=== PATIENT | male | born 1935 | race Caucasian/White ===

== ENCOUNTER 2020-07-12 10:09 | Emergency (ER) | payer MEDICARE, OTHER ==
--- NOTE | 2020-07-12 10:37 | EDM.PDOC ---
ED HPI GENERAL MEDICAL PROBLEM - General Chief Complaint: Eye Problems Stated Complaint: itchy red eyelid Time Seen by Provider: 07/12/20 10:20 Source of Information: Reports: Patient History Limitations: Reports: No Limitations - History of Present Illness INITIAL COMMENTS - FREE TEXT/NARRATIVE: Pt states he was mowing the lawn 3 days ago and states he right eyelids have been very itchy and mildly edematous, no visual changes, no eye pain or conjunctival redness, only his eyelids are mildly swollen and itchy. Onset: Gradual Onset Date: 07/10/20 Location: Reports: Face (Right upper and lower eyelids) Quality: Reports: Other (itchy, not painful) Improves with: Reports: None, Other (slightly better today than yesterday) Worsens with: Reports: None Associated Symptoms: Reports: No Other Symptoms ED ROS ALLERGIC REACTION - Review of Systems Review Of Systems: See Below Constitutional: Reports: No Symptoms. Denies: Fever, Malaise, Weakness HEENT: Reports: Other (right eyelid mildly erthematous and edematous). Denies: Ear Pain, Eye Discharge, Eye Pain, Rhinitis, Sinus Problem, Throat Pain, Throat Swelling, Vision Change Respiratory: Reports: No Symptoms Cardiovascular: Reports: No Symptoms GI/Abdominal: Reports: No Symptoms Musculoskeletal: Reports: No Symptoms Skin: Reports: Pruritis, Rash, Erythema, Other (upper and lower eyelid) Neurological: Reports: No Symptoms Psychiatric: Reports: No Symptoms ED EXAM GENERAL NO PERIP PULSE - Physical Exam Exam: See Below Exam Limited By: No Limitations General Appearance: Alert, WD/WN, No Apparent Distress Eye Exam: Right Eye: Other (Right upper and lower eyelid slightly puffy and mildly erythematous from rubbing) Ears: Normal External Exam Nose: Normal Inspection Throat/Mouth: Normal Inspection Head: Atraumatic, Normocephalic Neck: Normal Inspection, Supple Respiratory/Chest: No Respiratory Distress Cardiovascular: Normal Peripheral Pulses, Regular Rate, Rhythm Neurological: Alert, Oriented, CN II-XII Intact, Normal Cognition, Normal Gait Psychiatric: Normal Affect Skin Exam: Warm, Dry, Intact, Normal Color Course - Vital Signs Text/Narrative:: Pt appears to have a simple contact dermatitis involving his right upper and lower eyelids. Departure - Departure Time of Disposition: 10:42 Disposition: Home, Self-Care 01 Clinical Impression: Contact allergy eyelid Clinical Impression: (Ruled Out): Conjunctivitis, Corneal abrasion - Discharge Information *PRESCRIPTION DRUG MONITORING PROGRAM REVIEWED*: Not Applicable *COPY OF PRESCRIPTION DRUG MONITORING REPORT IN PATIENT RONAN: Not Applicable Instructions: Contact Dermatitis Forms: ED Department Discharge Additional Instructions: Get Over the counter Hydrocortisone ointment apply to upper and lower lid 4-5 times a day. May try cool moist compresses or warm moist compress te the affected eye. Follow up with primary doctor if needed.
== END 2020-07-12 10:40 | disposition home or self-care (01) ==
LOC: LB.ED 10:09
DX: H02.89 Other specified disorders of eyelid (principal)
CPT/HCPCS: 99283

== ENCOUNTER 2021-04-28 11:28 | Emergency (ER) | payer MEDICARE, OTHER ==
--- NOTE | 2021-05-02 12:14 | ER ---
HISTORY OF PRESENT ILLNESS: An 85-year-old male here with complaints of feeling weak and a little lightheaded and dizzy after he was standing at a for about an hour. He states he was standing around talking and visiting with people and then standing in line to get food when he started to feel his symptoms. He was told to rest for a while and then come in for evaluation. The patient has not been sick lately. He has not been running a fever. There has been no problems with coughing or shortness of breath or nausea or vomiting. He states he feels fine now that he has rested for a while. CURRENT MEDICATIONS: Include HCTZ, verapamil, and aspirin. OBJECTIVE: GENERAL APPEARANCE: The patient is awake and alert. No obvious distress. VITAL SIGNS: Reviewed. He is afebrile. Blood pressure 105/60, pulse 60, respirations 18, O2 sats 95%. LUNGS: Clear. CARDIAC: Heart sounds distinct. S1, S2 present. No murmurs noted. SKIN: Warm and dry. EXTREMITIES: There is no lower extremity edema noted. NEUROLOGIC: The patient is able to stand and change positions at this time without any discomfort or dizziness. DIAGNOSIS: Hypotension, symptomatic. TREATMENT PLAN: I gave the patient the options of getting a chest x-ray, EKG, and some lab work, possibly a liter of IV fluids, but he declined this telling me that he feels good and he is wondering if he can just go home. I will therefore discharge the patient. He is to go home, rest, increase his liquid intake by couple of glasses of water today, and I advised him to hold his blood pressure medicines today. Activity should resume as tolerated tomorrow and followup is p.r.n. JUNIOR/RICHARD /[id number]
== END 2021-04-28 12:20 | disposition home or self-care (01) ==
LOC: LB.ED 11:28
DX: I95.9 Hypotension, unspecified (principal)
CPT/HCPCS: 99282; 99284

== ENCOUNTER 2022-03-17 10:38 | Inpatient (IN) | payer MEDICARE, OTHER ==
[2022-03-17] MEDS ORDERED: Sodium Chloride 0.9% 1,000 ML IV ONE (11:01)
[2022-03-17] MEDS ORDERED: Aspirin 81 MG Tab.Chew PO ONE (11:05)
[2022-03-17] MEDS ORDERED: ceFAZolin 1 GM in Sodium Chloride 0.9% 50 ML IV ONE (11:38)
[2022-03-17] MEDS ORDERED: ceFAZolin 1 GM Vial ONE (11:53)
[2022-03-17] MEDS ORDERED: Sodium Chloride 0.9% 1,000 ML IV SCH ×3 (13:45→19:30)
[2022-03-17] MEDS ORDERED: Cefepime 1 GM in Sodium Chloride 0.9% 50 ML IV ONE ×2 (16:21→17:03)
[2022-03-17] MEDS ORDERED: Doxycycline 100 MG Cap ONE (17:24)
[2022-03-17] MEDS ORDERED: diphenhydrAMINE 25 MG Cap ONE (17:25)
[2022-03-17] MEDS ORDERED: diphenhydrAMINE 25 MG Cap PO PRN (17:33)
[2022-03-17] MEDS ORDERED: Doxycycline 100 MG Cap PO SCH (17:45)
[2022-03-17] MEDS ORDERED: VANCOmycin 1.5 GM/300 ML 1.5 GM in Premix Bag 1 BAG IV SCH (18:30)
[2022-03-17] MEDS ORDERED: Magnesium Sulfate/D5W 1 GM/100 ML Premix Bag IV ONE (18:33)
[2022-03-17] MEDS ORDERED: VANCOmycin 1.5 GM/300 ML 1.5 GM in Premix Bag 1 BAG IV ONE (19:00)
[2022-03-17] MEDS ORDERED: VANCOmycin 1.5 GM/300 ML 300 ML ONE (21:01)
[2022-03-17] MEDS: Lactated Ringers 1,000 ML IV SCH (21:20)
[2022-03-18] MEDS ORDERED: Cefepime 2 GM in Sodium Chloride 0.9% 50 ML IV SCH ×6 (02:00→12:00)
[2022-03-18] MEDS ORDERED: Hydrochlorothiazide 25 MG Tab PO SCH (08:00)
[2022-03-18] MEDS ORDERED: Acetaminophen 325 MG Tab PO PRN (08:51)
[2022-03-18] MEDS ORDERED: Norepinephrine 8 MG in Dextrose 5% in Water 250 ML IV SCH ×2 (11:00)
[2022-03-18] MEDS: Lactated Ringers 1,000 ML IV SCH (11:57)
== END 2022-03-18 12:15 | DRG 871 ==
LOC: LB.ED 10:38 → LB.MS 16:24
PROVIDERS: ADMIT Physician Assistant; ATTEND Physician Assistant
DX: A41.9 Sepsis, unspecified organism (principal); J18.9 Pneumonia, unspecified organism; D84.9 Immunodeficiency, unspecified; C81.90 Hodgkin lymphoma, unspecified, unspecified site; E87.2 Acidosis; I95.9 Hypotension, unspecified; H54.7 Unspecified visual loss; I10 Essential (primary) hypertension; C85.90 Non-Hodgkin lymphoma, unspecified, unspecified site; D64.9 Anemia, unspecified; D69.6 Thrombocytopenia, unspecified; D69.59 Other secondary thrombocytopenia; T45.1X5A Adverse effect of antineoplastic and immunosuppressive drugs, initial encounter; R21 Rash and other nonspecific skin eruption; C61 Malignant neoplasm of prostate; L30.9 Dermatitis, unspecified; Z88.8 Allergy status to other drugs, medicaments and biological substances; Z85.71 Personal history of Hodgkin lymphoma; Z79.82 Long term (current) use of aspirin; Z79.899 Other long term (current) drug therapy; Z20.822 Contact with and (suspected) exposure to COVID-19
CPT/HCPCS: 36415; 71045; 80048; 80053; 82947; 83605 ×2; 83735; 83880 ×2; 84484 ×2; 85025 ×2; 85610; 87040 ×2; 93005 ×2; 96365; 99285; A0425; A0429; A9270; J0690; J7030 ×2; U0002; 81003; 85379; 93010; J0692; J3370; J3475; J3490; J7060; J7120

== ENCOUNTER 2022-03-23 12:32 | Inpatient (IN) | payer MEDICARE, OTHER ==
[2022-03-23] MEDS ORDERED: diphenhydrAMINE 25 MG Cap PO PRN (18:57)
[2022-03-23] MEDS ORDERED: EPINEPHrine 1 MG/ML SDV IM PRN (19:00)
[2022-03-23] MEDS ORDERED: LORazepam 1 MG Tab PO PRN (19:23)
[2022-03-23] MEDS: oxyCODONE 5 MG Tab PO PRN (19:50)
[2022-03-23] MEDS: Amoxicillin/Clavulanate K 875-125 MG Tab PO SCH (19:52)
[2022-03-24] MEDS ORDERED: Tuberculin, PPD 5 Units/0.1 ML 1 ML MDV IDERM ONE (08:00)
[2022-03-24] MEDS ORDERED: Verapamil 120 MG Tab.ER PO SCH (08:00)
[2022-03-24] MEDS: Amoxicillin/Clavulanate K 875-125 MG Tab PO SCH ×2 (08:40→19:58)
[2022-03-24] MEDS: Potassium Chloride 10 MEQ Tab.ER PO SCH (08:40)
[2022-03-24] MEDS: oxyCODONE 5 MG Tab PO PRN ×2 (10:14→19:57)
[2022-03-24] MEDS: Verapamil 120 MG Tab.ER PO SCH (19:57)
[2022-03-25] MEDS: oxyCODONE 5 MG Tab PO PRN ×3 (02:13→17:43)
[2022-03-25] MEDS: Potassium Chloride 10 MEQ Tab.ER PO SCH (07:15)
[2022-03-25] MEDS: PRESERVISION PO SCH (07:16)
[2022-03-25] MEDS: Aspirin 81 MG Tab.EC PO SCH (07:16)
[2022-03-25] MEDS: Amoxicillin/Clavulanate K 875-125 MG Tab PO SCH ×2 (07:16→20:03)
[2022-03-25] MEDS: Hydrochlorothiazide 25 MG Tab PO SCH (07:16)
[2022-03-25] MEDS: Verapamil 120 MG Tab.ER PO SCH ×2 (07:16→20:03)
[2022-03-25] MEDS ORDERED: VERAPAMIL HCL 240 MG PO SCH (08:00)
[2022-03-25] MEDS ORDERED: VERAPAMIL HCL 120 MG PO SCH (08:00)
[2022-03-26] MEDS: Potassium Chloride 10 MEQ Tab.ER PO SCH (08:09)
[2022-03-26] MEDS: Hydrochlorothiazide 25 MG Tab PO SCH (08:10)
[2022-03-26] MEDS: Verapamil 120 MG Tab.ER PO SCH ×2 (08:10→19:53)
[2022-03-26] MEDS: Amoxicillin/Clavulanate K 875-125 MG Tab PO SCH ×2 (08:11→19:54)
[2022-03-26] MEDS: PRESERVISION PO SCH (08:11)
[2022-03-26] MEDS: oxyCODONE 5 MG Tab PO PRN ×3 (09:00→22:23)
[2022-03-26] MEDS: diphenhydrAMINE 25 MG Cap PO PRN (19:54)
[2022-03-27] MEDS: oxyCODONE 5 MG Tab PO PRN ×4 (04:23→22:00)
[2022-03-27] MEDS ORDERED: Amoxicillin/Clavulanate K 875-125 MG Tab ONE (08:00)
[2022-03-27] MEDS: Potassium Chloride 10 MEQ Tab.ER PO SCH (08:23)
[2022-03-27] MEDS: Verapamil 120 MG Tab.ER PO SCH ×2 (08:23→20:04)
[2022-03-27] MEDS: Amoxicillin/Clavulanate K 875-125 MG Tab PO SCH ×2 (08:24→20:05)
[2022-03-27] MEDS: Hydrochlorothiazide 25 MG Tab PO SCH (08:28)
[2022-03-27] MEDS: PRESERVISION PO SCH (08:28)
[2022-03-27] MEDS: Aspirin 81 MG Tab.EC PO SCH (08:28)
[2022-03-28] MEDS: oxyCODONE 5 MG Tab PO PRN ×2 (05:21→17:00)
[2022-03-28] MEDS: Potassium Chloride 10 MEQ Tab.ER PO SCH (07:17)
[2022-03-28] MEDS: Hydrochlorothiazide 25 MG Tab PO SCH (07:18)
[2022-03-28] MEDS: PRESERVISION PO SCH (07:18)
[2022-03-28] MEDS: Amoxicillin/Clavulanate K 875-125 MG Tab PO SCH ×2 (07:55→19:58)
[2022-03-28] MEDS: Verapamil 120 MG Tab.ER PO SCH ×2 (07:55→19:58)
[2022-03-29] MEDS: Potassium Chloride 10 MEQ Tab.ER PO SCH (07:47)
[2022-03-29] MEDS: Amoxicillin/Clavulanate K 875-125 MG Tab PO SCH ×2 (07:47→20:28)
[2022-03-29] MEDS: PRESERVISION PO SCH (07:47)
[2022-03-29] MEDS: Hydrochlorothiazide 25 MG Tab PO SCH (07:50)
[2022-03-29] MEDS: Verapamil 120 MG Tab.ER PO SCH ×2 (07:50→20:28)
[2022-03-29] MEDS: Aspirin 81 MG Tab.EC PO SCH (07:51)
[2022-03-29] MEDS: oxyCODONE 5 MG Tab PO PRN ×2 (12:06→18:09)
[2022-03-29] MEDS: Polyethylene Glycol 3350 Powder 17 GM Packet PO SCH (12:30)
[2022-03-29] MEDS: Trolamine Salicylate/Aloe Vera 10% Crm 85 GM Tube TOP SCH (20:29)
[2022-03-30] MEDS: oxyCODONE 5 MG Tab PO PRN ×3 (01:23→16:37)
[2022-03-30] MEDS: PRESERVISION PO SCH (07:32)
[2022-03-30] MEDS: Trolamine Salicylate/Aloe Vera 10% Crm 85 GM Tube TOP SCH ×3 (07:32→20:25)
[2022-03-30] MEDS: Hydrochlorothiazide 25 MG Tab PO SCH (07:32)
[2022-03-30] MEDS: Verapamil 120 MG Tab.ER PO SCH ×2 (07:32→20:24)
[2022-03-30] MEDS: Polyethylene Glycol 3350 Powder 17 GM Packet PO SCH (07:32)
[2022-03-30] MEDS: Potassium Chloride 10 MEQ Tab.ER PO SCH (07:33)
[2022-03-30] MEDS: Amoxicillin/Clavulanate K 875-125 MG Tab PO SCH ×2 (07:33→20:24)
[2022-03-30] MEDS ORDERED: Ondansetron 4 MG Tab.DIS PO PRN (14:03)
[2022-03-30] MEDS ORDERED: Omeprazole 20 MG Cap.CR PO ONE (19:24)
[2022-03-30] MEDS: Metoclopramide 10 MG Tab PO SCH (20:25)
[2022-03-31] MEDS: diphenhydrAMINE 25 MG Cap PO PRN ×3 (03:30→20:32)
[2022-03-31] MEDS: Omeprazole 20 MG Cap.CR PO SCH (08:09)
[2022-03-31] MEDS: Metoclopramide 10 MG Tab PO SCH ×3 (08:09→17:00)
[2022-03-31] MEDS: PRESERVISION PO SCH (08:29)
[2022-03-31] MEDS: Lactobacillus Acidophilus/Lactobacillus Sporogenes (Probiotic) Tab PO SCH (08:30)
[2022-03-31] MEDS: Polyethylene Glycol 3350 Powder 17 GM Packet PO SCH (08:30)
[2022-03-31] MEDS: Amoxicillin/Clavulanate K 875-125 MG Tab PO SCH (08:30)
[2022-03-31] MEDS: Verapamil 120 MG Tab.ER PO SCH ×2 (08:30→20:22)
[2022-03-31] MEDS: Hydrochlorothiazide 25 MG Tab PO SCH (08:30)
[2022-03-31] MEDS: Potassium Chloride 10 MEQ Tab.ER PO SCH (08:31)
[2022-03-31] MEDS: Trolamine Salicylate/Aloe Vera 10% Crm 85 GM Tube TOP SCH ×3 (08:32→20:21)
[2022-03-31] MEDS: Aspirin 81 MG Tab.EC PO SCH (08:32)
[2022-03-31] MEDS: oxyCODONE 5 MG Tab PO PRN ×2 (08:46→17:09)
[2022-04-01] MEDS: Lactobacillus Acidophilus/Lactobacillus Sporogenes (Probiotic) Tab PO SCH (07:23)
[2022-04-01] MEDS: Potassium Chloride 10 MEQ Tab.ER PO SCH (07:23)
[2022-04-01] MEDS: Omeprazole 20 MG Cap.CR PO SCH (07:23)
[2022-04-01] MEDS: Hydrochlorothiazide 25 MG Tab PO SCH (07:23)
[2022-04-01] MEDS: Metoclopramide 10 MG Tab PO SCH (07:24)
[2022-04-01] MEDS: Trolamine Salicylate/Aloe Vera 10% Crm 85 GM Tube TOP SCH (07:25)
[2022-04-01] MEDS: Polyethylene Glycol 3350 Powder 17 GM Packet PO SCH (07:25)
[2022-04-01] MEDS: Verapamil 120 MG Tab.ER PO SCH (07:25)
[2022-04-01] MEDS: PRESERVISION PO SCH (07:26)
[2022-04-01] MEDS: oxyCODONE 5 MG Tab PO PRN (08:55)
[2022-04-01] MEDS ORDERED: Acetaminophen 325 MG Tab PO SCH (11:15)
[2022-04-01] MEDS ORDERED: Non-Formulary Medication 1 Each (Naproxen Sodium [Naproxen Sodium] 220 MG Capsule) PO SCH (11:15)
[2022-04-01] MEDS ORDERED: TROLAMINE SALICYLATE TP SCH (14:00)
[2022-04-01] MEDS ORDERED: [UNRECOGNIZED DRUG - OTHER] TP SCH (14:00)
[2022-04-01] MEDS ORDERED: ALOE VERA TP SCH (14:00)
[2022-04-01] MEDS ORDERED: Metoclopramide 10 MG Tab PO SCH (17:00)
[2022-04-02] MEDS ORDERED: Non-Formulary Medication 1 Each (Omeprazole Magnesium [Prilosec Otc] 20 MG Tablet.Dr) PO SCH (07:00)
[2022-04-02] MEDS ORDERED: Potassium Chloride 10 MEQ Tab.ER PO SCH (08:00)
[2022-04-02] MEDS ORDERED: Polyethylene Glycol 3350 Powder 17 GM Packet PO SCH (08:00)
== END 2022-04-01 11:45 | disposition home or self-care (01) | DRG 947 ==
LOC: LB.MS 18:00 → UNDOADMIN 18:00 → LB.MS 18:02
PROVIDERS: ADMIT Physician Assistant; ATTEND Physician Assistant
PROC: 3E0U33Z Introduction of Anti-inflammatory into Joints, Percutaneous Approach (ICD-10-PCS; principal; 2022-03-29)
DX: R53.81 Other malaise (principal); J18.9 Pneumonia, unspecified organism; C88.4 Extranodal marginal zone B-cell lymphoma of mucosa-associated lymphoid tissue [MALT-lymphoma]; Z79.82 Long term (current) use of aspirin; K21.9 Gastro-esophageal reflux disease without esophagitis; F41.9 Anxiety disorder, unspecified; H54.7 Unspecified visual loss; I10 Essential (primary) hypertension; Z20.822 Contact with and (suspected) exposure to COVID-19; G47.00 Insomnia, unspecified; M75.102 Unspecified rotator cuff tear or rupture of left shoulder, not specified as traumatic
CPT/HCPCS: 71046; 73221-LT; 86580; 97110-GP; 97116-GP; 97161-GP; 97165-GO; 97530-GO; 97530-GP; 97535-GO; A9270-GY; Q0162; U0002

== ENCOUNTER 2022-06-22 11:53 | Emergency (ER) | payer MEDICARE, OTHER ==
[2022-06-22] MEDS ORDERED: Sodium Chloride 0.9% 10 ML Syringe FLUSH PRN (12:06)
[2022-06-22] MEDS: Ondansetron 4 MG/2 ML SDV IVPUSH ONE (12:25)
[2022-06-22] MEDS: Ondansetron 4 MG/2 ML SDV ONE (12:33)
[2022-06-22] MEDS: Sodium Chloride 0.9% 1,000 ML IV SCH (13:15)
[2022-06-22] MEDS ORDERED: Sodium Chloride 0.9% 1,000 ML IV SCH (13:15)
[2022-06-22 15:39] VITALS: BP 140/73; PULSE 58
== END 2022-06-22 15:49 ==
LOC: LB.ED 11:53
DX: R11.2 Nausea with vomiting, unspecified (principal); D64.89 Other specified anemias; I10 Essential (primary) hypertension; K21.9 Gastro-esophageal reflux disease without esophagitis; Z88.8 Allergy status to other drugs, medicaments and biological substances; Z20.822 Contact with and (suspected) exposure to COVID-19
CPT/HCPCS: 36415; 36430; 71045; 71250; 74018; 80048; 84484; 85025; 86850; 86900; 86901; 86920; 86922; 87804; 87804-59; 93005; 96361; 96374; 99285-25; J2405; J7030; P9016; U0002

== ENCOUNTER 2022-07-25 12:39 | Emergency (ER) | payer MEDICARE, OTHER ==
[2022-07-25] MEDS ORDERED: Acetaminophen/HYDROcodone 325-5 MG Tab ONE (13:20)
[2022-07-25] MEDS ORDERED: Ketorolac 30 MG/ML SDV ONE (13:24)
[2022-07-25] MEDS ORDERED: Ketorolac 60 MG/2 ML SDV IM ONE (13:27)
[2022-07-25] MEDS ORDERED: HYDROmorphone 2 MG/ML SDV IM ONE (14:25)
[2022-07-25] MEDS ORDERED: HYDROmorphone 2 MG/ML Syringe ONE (14:32)
== END 2022-07-25 15:25 | disposition home or self-care (01) ==
LOC: LB.ED 12:39
DX: S30.0XXA Contusion of lower back and pelvis, initial encounter (principal); D64.9 Anemia, unspecified; I10 Essential (primary) hypertension; I48.91 Unspecified atrial fibrillation; C81.90 Hodgkin lymphoma, unspecified, unspecified site; E87.1 Hypo-osmolality and hyponatremia; R06.02 Shortness of breath; Y92.009 Unspecified place in unspecified non-institutional (private) residence as the place of occurrence of the external cause; W19.XXXA Unspecified fall, initial encounter
CPT/HCPCS: 36415; 72170; 72220; 80048; 81001; 83880; 85025; 96372; 99282; 99284; A0425; A0429; A9270; J1170; J1885